=== PATIENT | female | born 1950 | race Caucasian/White ===

== ENCOUNTER 2017-06-02 15:17 | Emergency (ER) | payer BC, MEDICARE ==
[2017-06-02] MEDS ORDERED: Lidocaine 1% with EPINEPHrine 1:100,000 50 ML MDV INFILT ONE (15:49)
--- NOTE | 2017-06-02 16:12 | EDM.PDOC ---
ED HPI GENERAL MEDICAL PROBLEM - General Chief Complaint: Bite:Animal, Insect Stated Complaint: DOG BITE Time Seen by Provider: 06/02/17 15:27 Source of Information: Reports: Patient History Limitations: Reports: No Limitations - History of Present Illness INITIAL COMMENTS - FREE TEXT/NARRATIVE: 66 yo female presents to ER post dog bite by her own dog. dog is up to date on vaccinations. dog was under table with another dog and growling pt placed her hand under table to settle dog and was bit. Bite is on left hand with punctures on dorsum and huber. moderate bleeding. generally healthy. She is anticoagulated. INR has been stable. generally healthy. Left Hand Pain Score (Numeric/FACES): 3 - Related Data Allergies Allergy/AdvReac Type Severity Reaction Status Date / Time latex Allergy Itching Verified 06/02/17 15:38 Home Meds: Home Meds Atenolol [Tenormin] 25 mg PO DAILY 08/04/14 [History] Past Medical History Cardiovascular History: Reports: Hypertension Gastrointestinal History: Reports: Bowel Obstruction Other OB/BYN History: OVARIAN CYST Other Hematologic History: DVT - Past Surgical History GI Surgical History: Reports: Appendectomy Other GI Surgeries/Procedures: PARTIAL REMOVAL OF BOWEL R/T BOWEL OBSTRUCTION Social & Family History - Tobacco Use Smoking Status *Q: Unknown Ever Smoked Second Hand Smoke Exposure: No - Alcohol Use Days Per Week of Alcohol Use: 7 Number of Drinks Per Day: 3 Total Drinks Per Week: 21 - Recreational Drug Use Recreational Drug Use: No ED ROS GENERAL - Review of Systems Review Of Systems: See Below Constitutional: Denies: Fever, Fatigue Respiratory: Denies: Shortness of Breath Cardiovascular: Denies: Chest Pain ED EXAM, ANIMAL BITE - Physical Exam Exam: See Below Exam Limited By: No Limitations General Appearance: Alert, WD/WN, No Apparent Distress Respiratory/Chest: No Respiratory Distress Skin Exam: Other (pucture wounds; dormsum over 4th metacarpel 1.5 cm, huber mid palm 1 cm and superfical, CMS of fingers intact) Course - Vital Signs Last Recorded V/S: Last Vital Signs Temp 36.3 C 06/02/17 15:33 Pulse 87 06/02/17 15:33 Resp 15 06/02/17 15:33 BP 162/89 H 06/02/17 15:33 Pulse Ox 95 06/02/17 15:33 - Orders/Labs/Meds Meds: Medications Discontinued Medications Generic Name Dose Route Start Last Admin Trade Name Man PRN Reason Stop Dose Admin Bacitracin 1 dose 06/02/17 16:20 06/02/17 16:42 Bacitracin Oint 1 Gm TOP 06/02/17 16:21 1 dose ONETIME ONE Administration Lidocaine/Epinephrine 3 ml 06/02/17 15:49 06/02/17 16:14 Xylocaine 1% With Epinephrine 1:100,000 INFILT 06/02/17 15:50 3 ml ONETIME ONE Administration - Re-Assessments/Exams Free Text/Narrative Re-Assessment/Exam: 06/02/17 17:04 hand was soaked in shurcleanse and normal saline. 1 mL Lidocaine 1% with epi infiltrated. wound explored to base. flushed with normal saline. topical antibiotic applied and wounds dressing and wrapped with Cirilo to control bleeding. pt tolerated well Departure - Departure Time of Disposition: 16:30 Disposition: Home, Self-Care 01 Condition: Good Clinical Impression: Dog bite of left hand Qualifiers: Encounter type: initial encounter Qualified Code(s): S61.452A - Open bite of left hand, initial encounter - Discharge Information Instructions: Animal Bite, [id number] Referrals: Aurelia Toro NP [Primary Care Provider] - Forms: ED Department Discharge Additional Instructions: Augmentin 500 mg twice daily for 5 days change dressing in 24 hours observe for signs of infection : fire engine red, purulent drainage or increase in pain Ice for pain control tylenol 1000 mg every 6 hours as needed for pain
[2017-06-02] MEDS ORDERED: Bacitracin Oint 1 GM U/D Packet TOP ONE (16:20)
== END 2017-06-02 16:43 | disposition home or self-care (01) ==
LOC: JP.ED 15:17
DX: S61.452A Open bite of left hand, initial encounter (principal); I10 Essential (primary) hypertension; Z79.899 Other long term (current) drug therapy; Z91.040 Latex allergy status; W54.0XXA Bitten by dog, initial encounter
CPT/HCPCS: 99284; A4217

== ENCOUNTER 2018-12-05 06:21 | Day surgery (SDC) | payer BC, MEDICARE ==
[2018-12-05] MEDS: Sodium Chloride 0.9% 1,000 ML IV SCH (07:07)
[2018-12-05] MEDS ORDERED: Propofol 200 MG/20 ML SDV ONE ×2 (07:33→08:02)
[2018-12-05] MEDS ORDERED: Midazolam 1 MG/ML 2 ML SDV ONE (07:34)
[2018-12-05] MEDS ORDERED: fentaNYL 100 MCG/2 ML SDV ONE (07:34)
--- NOTE | 2018-12-09 12:03 | OR ---
DATE OF PROCEDURE: 12/05/2018 PROCEDURE: Colonoscopy. FINDINGS: 1. Ascending colon polyp, approximately 8 mm, completely removed using cold snare. 2. Poor colon prep. COMPLICATIONS: None. SURGEON: Mihai Ndiaye MD MANAGER TECHNICAL SALES: None. ANESTHESIA: MAC. PREOPERATIVE DIAGNOSIS: Screening colonoscopy. POSTOPERATIVE DIAGNOSIS: Screening colonoscopy. RISKS: Risks, benefits, alternatives, and limitations including but not limited to infection, bleeding, and perforation were explained. The patient wished to proceed. PROCEDURE IN DETAIL: The patient was placed in left lateral decubitus position. Digital rectal exam was performed without abnormality. The scope was introduced and advanced atraumatically to the ileocecal valve. The scope was brought back through the ascending, transverse, descending colon, and retroflexed. The aforementioned polyp was identified and completely removed. No other abnormalities were noted. The polyp had been removed using cold snare. No abnormal bleeding was noted after this. The prep can be described as poor; however, approximately 90% of the luminal surface could be seen. The patient tolerated the procedure well. Mihai Ndiaye MD /[id number]
== END 2018-12-05 09:05 | disposition home or self-care (01) ==
LOC: JP.SDS 06:21
PROVIDERS: ATTEND Surgery
DX: Z12.11 Encounter for screening for malignant neoplasm of colon (principal); D12.2 Benign neoplasm of ascending colon; I10 Essential (primary) hypertension; E78.5 Hyperlipidemia, unspecified; E66.01 Morbid (severe) obesity due to excess calories; Z68.42 Body mass index [BMI] 45.0-49.9, adult; Z91.040 Latex allergy status
CPT/HCPCS: 45385; 88305; J2250; J2704; J3010; J7030

== ENCOUNTER 2019-06-29 20:34 | Emergency (ER) | payer BC, MEDICARE ==
--- NOTE | 2019-06-29 21:37 | EDM.PDOC ---
ED HPI GENERAL MEDICAL PROBLEM - General Chief Complaint: CLAM PICKER Problem Stated Complaint: VAG BLEEDING Time Seen by Provider: 06/29/19 21:17 Source of Information: Reports: Patient, Family, RN Notes Reviewed History Limitations: Reports: No Limitations - History of Present Illness INITIAL COMMENTS - FREE TEXT/NARRATIVE: 69-year-old female presents emergency department today with vaginal bleeding, she is postmenopausal blue she went through menopause in the late 90s. She has had vaginal bleeding on and off for the last 2 to 3 weeks currently it is very heavy going through multiple pads an hour at this time. She did not feel lightheaded has not wanted to pass out. - Related Data Allergies Allergy/AdvReac Type Severity Reaction Status Date / Time latex Allergy Itching Verified 06/29/19 21:04 Home Meds: Home Meds Atenolol [Tenormin] 50 mg PO DAILY 08/04/14 [History] Acetaminophen [Tylenol] 650 mg PO Q6HR PRN 12/04/18 [History] Furosemide 20 mg PO DAILY 12/04/18 [History] Warfarin Sodium 2.5 mg PO DAILY 12/04/18 [History] atorvaSTATin Calcium [Atorvastatin Calcium] 10 mg PO DAILY 12/04/18 [History] Past Medical History HEENT History: Reports: Impaired Vision Cardiovascular History: Reports: Blood Clots/VTE/DVT, High Cholesterol, Hypertension Gastrointestinal History: Reports: Bowel Obstruction, Colon Polyp CLAM PICKER History: Reports: , Other (See Below) Other CLAM PICKER History: OVARIAN CYST Psychiatric History: Reports: Other (See Below) Other Psychiatric History: claustaphobia Hematologic History: Reports: Anticoagulation Therapy, Blood Transfusion(s) Other Hematologic History: DVT Dermatologic History: Reports: Cellulitis - Infectious Disease History Infectious Disease History: Reports: Chicken Pox - Past Surgical History HEENT Surgical History: Reports: None Cardiovascular Surgical History: Reports: None GI Surgical History: Reports: Appendectomy, Colonoscopy, Polypectomy, Other ( See Below) Other GI Surgeries/Procedures: PARTIAL REMOVAL OF BOWEL R/T BOWEL OBSTRUCTION Female Surgical History: Reports: Oophorectomy Musculoskeletal Surgical History: Reports: None Dermatological Surgical History: Reports: None Social & Family History - Family History Family Medical History: Noncontributory - Tobacco Use Smoking Status *Q: Never Smoker - Caffeine Use Caffeine Use: Reports: Coffee - Alcohol Use Days Per Week of Alcohol Use: 7 Number of Drinks Per Day: 3 Total Drinks Per Week: 21 - Recreational Drug Use Recreational Drug Use: No ED ROS GENERAL - Review of Systems Review Of Systems: See Below Constitutional: Reports: No Symptoms HEENT: Reports: No Symptoms Respiratory: Reports: No Symptoms Cardiovascular: Reports: No Symptoms GI/Abdominal: Reports: No Symptoms : Reports: Irregular Menses ED EXAM, RENAL/ - Physical Exam Exam: See Below Exam Limited By: No Limitations General Appearance: Alert, WD/WN, No Apparent Distress Respiratory/Chest: No Respiratory Distress GI/Abdominal: Soft, Non-Tender (Female) Exam: Normal External Exam, Normal Bimanual Exam, Vaginal Bleeding. No: Adnexal Mass, Adnexal Tenderness, Vaginal Tears Course - Vital Signs Last Recorded V/S: Last Vital Signs Temp 97.4 F 06/29/19 21:07 Pulse 80 06/29/19 21:07 Resp 16 06/29/19 21:07 BP 178/79 H 06/29/19 21:07 Pulse Ox 96 06/29/19 21:07 - Orders/Labs/Meds Labs: Laboratory Tests 06/29/19 06/29/19 06/29/19 Range/Units 21:39 21:39 21:39 WBC 7.1 (4.5-11.0) K/uL RBC 4.38 (3.30-5.50) M/uL Hgb 13.9 (12.0-15.0) g/dL Hct 42.7 (36.0-48.0) % MCV 98 (80-98) fL MCH 32 H (27-31) pg MCHC 33 (32-36) % Plt Count 242 (150-400) K/uL Neut % (Auto) 60 (36-66) % Lymph % (Auto) 28 (24-44) % [place] % (Auto) 10 H (2-6) % Eos % (Auto) 1 L (2-4) % Baso % (Auto) 1 (0-1) % PT 24.3 H (9.5-12.0) sec INR 2.36 H (0.80-1.20) Sodium 140 (140-148) mmol/L Potassium 3.4 L (3.6-5.2) mmol/L Chloride 100 (100-108) mmol/L Carbon Dioxide 29 (21-32) mmol/L Anion Gap 14.4 H (5.0-14.0) mmol/L BUN 15 (7-18) mg/dL Creatinine 1.2 H (0.6-1.0) mg/dL Est Cr Clr Drug Dosing 38.75 mL/min Estimated GFR (MDRD) 45 L (>60) Glucose 127 H (74-106) mg/dL Calcium 9.0 (8.5-10.1) mg/dL Total Bilirubin 0.3 (0.2-1.0) mg/dL AST 21 (15-37) U/L ALT 30 (12-78) U/L Alkaline Phosphatase 104 (46-116) U/L Total Protein 7.4 (6.4-8.2) g/dL Albumin 3.6 (3.4-5.0) g/dL Globulin 3.8 H (2.3-3.5) g/dL Albumin/Globulin Ratio 1.0 L (1.2-2.2) TSH, Ultra Sensitive (0.358-3.740) uIU/mL 06/29/19 Range/Units 21:39 WBC (4.5-11.0) K/uL RBC (3.30-5.50) M/uL Hgb (12.0-15.0) g/dL Hct (36.0-48.0) % MCV (80-98) fL MCH (27-31) pg MCHC (32-36) % Plt Count (150-400) K/uL Neut % (Auto) (36-66) % Lymph % (Auto) (24-44) % [place] % (Auto) (2-6) % Eos % (Auto) (2-4) % Baso % (Auto) (0-1) % PT (9.5-12.0) sec INR (0.80-1.20) Sodium (140-148) mmol/L Potassium (3.6-5.2) mmol/L Chloride (100-108) mmol/L Carbon Dioxide (21-32) mmol/L Anion Gap (5.0-14.0) mmol/L BUN (7-18) mg/dL Creatinine (0.6-1.0) mg/dL Est Cr Clr Drug Dosing mL/min Estimated GFR (MDRD) (>60) Glucose (74-106) mg/dL Calcium (8.5-10.1) mg/dL Total Bilirubin (0.2-1.0) mg/dL AST (15-37) U/L ALT (12-78) U/L Alkaline Phosphatase (46-116) U/L Total Protein (6.4-8.2) g/dL Albumin (3.4-5.0) g/dL Globulin (2.3-3.5) g/dL Albumin/Globulin Ratio (1.2-2.2) TSH, Ultra Sensitive 7.068 H (0.358-3.740) uIU/mL Departure - Departure Time of Disposition: 00:23 Disposition: Home, Self-Care 01 Condition: Fair Clinical Impression: Vaginal bleeding - Discharge Information Referrals: Francisco Alcantara MD [Primary Care Provider] - Forms: ED Department Discharge Additional Instructions: Please call to the [facility] in the morning for an appointment time with OB/ GAS METER REPAIRER, inform them that you would be willing to drive to [facility] to meet with an CLAM PICKER for sooner appointment. Call or return to the emergency department for worsening of symptoms - Assessment/Plan Plan: Assessment Acuity = acute Site and laterality = vaginal bleeding Etiology = concern for endometrial neoplasm Manifestations = none Location of injury = Home Lab values = CBC unremarkable INR therapeutic 2.36, creatinine elevated 1.2 consistent chronic renal failure stage G3 a TSH elevated 7.068 consistent with subclinical hypothyroidism, ultrasound does show a thickened endometrium concern for endometrial neoplasm Plan I did review lab work with her and provided her a copy of her ultrasound results consult was put into the [facility] for CLAM PICKER as soon as possible she is willing to drive to [facility] for sooner consult This note was dictated using [employer] voice recognition software please call with any questions on syntax or grammar.
--- NOTE | 2019-06-29 23:49 | CRLUS ---
INDICATION: Postmenopausal bleeding TECHNIQUE: Multiple transvaginal sonographic images of the pelvis. COMPARISON: None available FINDINGS: Uterus: 8.2 x 5.6 x 3.9 cm. Inhomogeneous echotexture. Multiple cervical nabothian cysts. Endometrium: A significantly thickened, heterogeneous endometrium, measuring up to 2.4 cm, demonstrating mixed attenuation with hypoechoic components, as well as small foci of internal Doppler flow. Right ovary: Not seen. Left ovary: Not seen. Cul-de-sac: No significant free fluid. IMPRESSION: A significantly thickened, heterogeneous endometrium containing small foci of Doppler flow, highly suggestive of endometrial neoplasm. Recommend further gynecological evaluation with endometrial biopsy. Nonvisualization of the ovaries. Dictated by Richard Chang MD @ 06/29/2019 11:48:20 PM Dictated by: Richard Chang MD @ 06/29/2019 23:48:34 (Electronically Signed)
== END 2019-06-30 00:35 | disposition home or self-care (01) ==
LOC: JP.ED 20:34
DX: N93.9 Abnormal uterine and vaginal bleeding, unspecified (principal); I82.409 Acute embolism and thrombosis of unspecified deep veins of unspecified lower extremity; I10 Essential (primary) hypertension; E78.00 Pure hypercholesterolemia, unspecified; Z79.01 Long term (current) use of anticoagulants; Z79.899 Other long term (current) drug therapy; Z91.040 Latex allergy status
CPT/HCPCS: 36415; 76830; 80053; 84443; 85025; 85610; 99284-25

== ENCOUNTER 2019-09-22 19:21 | Emergency (ER) | payer BC, MEDICARE ==
--- NOTE | 2019-09-22 21:56 | EDM.PDOC ---
ED HPI GENERAL MEDICAL PROBLEM - General Chief Complaint: General Stated Complaint: SOB,DIZZY Time Seen by Provider: 09/22/19 21:46 Source of Information: Reports: Patient, Family History Limitations: Reports: No Limitations - History of Present Illness INITIAL COMMENTS - FREE TEXT/NARRATIVE: pt has had very heavy vag bleeding. She is now feeling mildly lite headed and she is sob with activity. She recently did have 2 days of very heavy bleeding. Onset: Other (last 2 days. ) Duration: Hour(s): Location: Reports: Generalized Associated Symptoms: Reports: Shortness of Breath, Other ( this is with activity. ) denies Pain Score (Numeric/FACES): 0 - Related Data Allergies Allergy/AdvReac Type Severity Reaction Status Date / Time latex Allergy Itching Verified 09/22/19 19:39 Home Meds: Home Meds atenoloL [Tenormin] 50 mg PO DAILY 08/04/14 [History] Acetaminophen [Tylenol] 650 mg PO Q6HR PRN 12/04/18 [History] Furosemide 20 mg PO DAILY 12/04/18 [History] Warfarin Sodium 2.5 mg PO DAILY 12/04/18 [History] atorvaSTATin Calcium [Atorvastatin Calcium] 10 mg PO DAILY 12/04/18 [History] Past Medical History HEENT History: Reports: Impaired Vision Cardiovascular History: Reports: Blood Clots/VTE/DVT, High Cholesterol, Hypertension Gastrointestinal History: Reports: Bowel Obstruction, Colon Polyp Genitourinary History: Reports: None LABORATORY OPERATIONS COORDINATOR History: Reports: , Other (See Below) Other LABORATORY OPERATIONS COORDINATOR History: OVARIAN CYST Psychiatric History: Reports: Other (See Below) Other Psychiatric History: claustaphobia Endocrine/Metabolic History: Reports: Obesity/BMI 30+ Hematologic History: Reports: Anticoagulation Therapy, Blood Transfusion(s) Other Hematologic History: DVT Dermatologic History: Reports: Cellulitis - Infectious Disease History Infectious Disease History: Reports: Chicken Pox - Past Surgical History GI Surgical History: Reports: Appendectomy, Colonoscopy, Polypectomy, Other ( See Below) Other GI Surgeries/Procedures: PARTIAL REMOVAL OF BOWEL R/T BOWEL OBSTRUCTION Female Surgical History: Reports: Oophorectomy Social & Family History - Family History Family Medical History: Noncontributory - Tobacco Use Smoking Status *Q: Never Smoker Second Hand Smoke Exposure: No - Caffeine Use Caffeine Use: Reports: Coffee, Tea - Alcohol Use Days Per Week of Alcohol Use: 7 Number of Drinks Per Day: 3 Total Drinks Per Week: 21 - Recreational Drug Use Recreational Drug Use: No ED ROS GENERAL - Review of Systems Review Of Systems: See Below Constitutional: Reports: Weakness, Other ( slight dizziness) HEENT: Reports: No Symptoms Respiratory: Reports: Shortness of Breath Cardiovascular: Reports: Other (heart has been pounding a little harder. ) Endocrine: Reports: No Symptoms GI/Abdominal: Reports: No Symptoms : Reports: No Symptoms Musculoskeletal: Reports: No Symptoms Skin: Reports: No Symptoms Neurological: Reports: No Symptoms Psychiatric: Reports: No Symptoms ED EXAM, GENERAL - Physical Exam Exam: See Below Free Text/Narrative:: pt arrived with a history of fatique, sob and feels like her heart is poundiong. She has no chest pain. Exam Limited By: No Limitations General Appearance: Alert, Anxious, Mild Distress, Other ( Her o2 sats were good. ) Ears: Normal TMs Nose: Normal Inspection Throat/Mouth: Normal Inspection Head: Atraumatic Neck: Normal Inspection Respiratory/Chest: No Respiratory Distress Cardiovascular: Regular Rate, Rhythm GI/Abdominal: Soft, Non-Tender (Female) Exam: Deferred Rectal (Female) Exam: Deferred Back Exam: Normal Inspection Extremities: Normal Inspection Neurological: Alert, Oriented, Normal Cognition Psychiatric: Normal Affect Course - Vital Signs Last Recorded V/S: Last Vital Signs Temp 35.9 C L 09/22/19 19:51 Pulse 72 09/22/19 21:08 Resp 16 09/22/19 20:09 BP 140/73 09/22/19 21:08 Pulse Ox 100 09/22/19 21:08 - Orders/Labs/Meds Orders: Active Orders 24 hr Category Date Time Status Chest 2V [CR] Stat Exams 09/22/19 20:03 Taken Labs: Laboratory Tests 09/22/19 09/22/19 09/22/19 Range/Units 20:09 20:09 20:09 WBC 7.4 (4.5-11.0) K/uL RBC 2.99 L (3.30-5.50) M/uL Hgb 8.4 L D (12.0-15.0) g/dL Hct 27.1 L (36.0-48.0) % MCV 91 (80-98) fL MCH 28 (27-31) pg MCHC 31 L (32-36) % Plt Count 269 (150-400) K/uL Neut % (Auto) 68 H (36-66) % Lymph % (Auto) 22 L (24-44) % [place] % (Auto) 10 H (2-6) % Eos % (Auto) 0 L (2-4) % Baso % (Auto) 0 (0-1) % PT (9.5-12.0) sec INR (0.80-1.20) D-Dimer, Quantitative 151 (0.0-400.0) ng/mL Sodium 136 L (140-148) mmol/L Potassium 3.5 L (3.6-5.2) mmol/L Chloride 99 L (100-108) mmol/L Carbon Dioxide 28 (21-32) mmol/L Anion Gap 12.5 (5.0-14.0) mmol/L BUN 19 H (7-18) mg/dL Creatinine 1.2 H (0.6-1.0) mg/dL Est Cr Clr Drug Dosing 38.75 mL/min Estimated GFR (MDRD) 45 L (>60) Glucose 135 H (74-106) mg/dL Calcium 8.1 L (8.5-10.1) mg/dL Total Bilirubin 0.4 (0.2-1.0) mg/dL AST 14 L (15-37) U/L ALT 19 (12-78) U/L Alkaline Phosphatase 75 (46-116) U/L Total Protein 6.1 L (6.4-8.2) g/dL Albumin 3.1 L (3.4-5.0) g/dL Globulin 3.0 (2.3-3.5) g/dL Albumin/Globulin Ratio 1.0 L (1.2-2.2) Urine Color (YELLOW) Urine Appearance (CLEAR) Urine pH (5.0-8.0) Ur Specific [place] (1.008-1.030) Urine Protein (NEGATIVE) mg/dL Urine Glucose (UA) (NEGATIVE) mg/dL Urine Ketones (NEGATIVE) mg/dL Urine Occult Blood (NEGATIVE) Urine Nitrite (NEGATIVE) Urine Bilirubin (NEGATIVE) Urine Urobilinogen (0.2-1.0) EU/dL Ur Leukocyte Esterase (NEGATIVE) Urine RBC (0-5) Urine WBC (0-5) Ur Epithelial Cells Amorphous Sediment Urine Bacteria Urine Mucus 09/22/19 09/22/19 Range/Units 20:09 21:04 WBC (4.5-11.0) K/uL RBC (3.30-5.50) M/uL Hgb (12.0-15.0) g/dL Hct (36.0-48.0) % MCV (80-98) fL MCH (27-31) pg MCHC (32-36) % Plt Count (150-400) K/uL Neut % (Auto) (36-66) % Lymph % (Auto) (24-44) % [place] % (Auto) (2-6) % Eos % (Auto) (2-4) % Baso % (Auto) (0-1) % PT 16.8 H (9.5-12.0) sec INR 1.60 H (0.80-1.20) D-Dimer, Quantitative (0.0-400.0) ng/mL Sodium (140-148) mmol/L Potassium (3.6-5.2) mmol/L Chloride (100-108) mmol/L Carbon Dioxide (21-32) mmol/L Anion Gap (5.0-14.0) mmol/L BUN (7-18) mg/dL Creatinine (0.6-1.0) mg/dL Est Cr Clr Drug Dosing mL/min Estimated GFR (MDRD) (>60) Glucose (74-106) mg/dL Calcium (8.5-10.1) mg/dL Total Bilirubin (0.2-1.0) mg/dL AST (15-37) U/L ALT (12-78) U/L Alkaline Phosphatase (46-116) U/L Total Protein (6.4-8.2) g/dL Albumin (3.4-5.0) g/dL Globulin (2.3-3.5) g/dL Albumin/Globulin Ratio (1.2-2.2) Urine Color Red A (YELLOW) Urine Appearance Cloudy A (CLEAR) Urine pH 6.0 (5.0-8.0) Ur Specific [place] 1.020 (1.008-1.030) Urine Protein 30 H (NEGATIVE) mg/dL Urine Glucose (UA) Negative (NEGATIVE) mg/dL Urine Ketones Negative (NEGATIVE) mg/dL Urine Occult Blood Large H (NEGATIVE) Urine Nitrite Negative (NEGATIVE) Urine Bilirubin Negative (NEGATIVE) Urine Urobilinogen 0.2 (0.2-1.0) EU/dL Ur Leukocyte Esterase Negative (NEGATIVE) Urine RBC Packed H (0-5) Urine WBC 0-5 (0-5) Ur Epithelial Cells Rare Amorphous Sediment Not seen Urine Bacteria Rare Urine Mucus Not seen - Re-Assessments/Exams Free Text/Narrative Re-Assessment/Exam: 09/22/19 22:02 hg was found to be 8.4. This needs to be rechecked and if it drops further she may need to be transfused prior to the ablation. She has a GFR of 45 so shhe does need to stay well hydrated. 09/22/19 22:03 Departure - Departure Time of Disposition: 21:56 Disposition: Home, Self-Care 01 Condition: Fair Clinical Impression: Anemia, Renal insufficiency, Diabetes mellitus - Discharge Information Referrals: Francisco Alcantara MD [Primary Care Provider] - Forms: ED Department Discharge Care Plan Goals: push fluids, vitamin high in iron, have hg checked again on saturday since it is 8.4 today. keep preop appt for Saturday with Embarr [facility]s. Sepsis Event Note - Evaluation Sepsis Screening Result: No Definite Risk - Focused Exam Vital Signs: Vital Signs Temp Pulse Resp BP Pulse Ox 09/22/19 21:08 72 140/73 100 09/22/19 20:38 71 135/64 100 09/22/19 20:09 73 16 145/46 H 92 L 09/22/19 19:51 35.9 C L 83 16 181/53 H 98 09/22/19 19:41 35.9 C L 83 16 181/53 H 98 Date Exam was Performed: 09/22/19 Time Exam was Performed: 21:59 - My Orders Last 24 Hours: My Active Orders 09/22/19 20:03 Chest 2V [CR] Stat - Assessment/Plan Last 24 Hours: My Active Orders 09/22/19 20:03 Chest 2V [CR] Stat
--- NOTE | 2019-09-23 10:57 | CR ---
CHEST: 2 view CLINICAL HISTORY:SOB COMPARISON:2013 FINDINGS: The heart size, pulmonary vascular and hilar structures are normal. No infiltrate effusion or pneumothorax is seen. There are atherosclerotic changes in the aorta. IMPRESSION: No acute cardiopulmonary process.
== END 2019-09-22 22:28 | disposition home or self-care (01) ==
LOC: JP.ED 19:21
DX: D64.9 Anemia, unspecified (principal); N28.9 Disorder of kidney and ureter, unspecified; E11.9 Type 2 diabetes mellitus without complications; E78.00 Pure hypercholesterolemia, unspecified; I10 Essential (primary) hypertension; E66.9 Obesity, unspecified; Z68.43 Body mass index [BMI] 50.0-59.9, adult; Z91.040 Latex allergy status; Z79.899 Other long term (current) drug therapy; Z79.01 Long term (current) use of anticoagulants; Z86.718 Personal history of other venous thrombosis and embolism
CPT/HCPCS: 36415; 71046; 71046-26; 80053; 81001; 85025; 85379; 85610; 99285-25

== ENCOUNTER 2021-01-15 18:02 | Emergency (ER) | payer BC, MEDICARE ==
--- NOTE | 2021-01-15 18:41 | EDM.PDOC ---
ED HPI GENERAL MEDICAL PROBLEM - General Chief Complaint: Respiratory Problem Stated Complaint: TROUBLE BREATHING, CONGESTION Time Seen by Provider: 01/15/21 18:12 Source of Information: Reports: Patient History Limitations: Reports: No Limitations - History of Present Illness INITIAL COMMENTS - FREE TEXT/NARRATIVE: 70 yo female presents to ER with cough. 4 day hx of mild throat congestion that has become a productive. She denies nasal congestion, she does feel mild sore throat. denies fever. denies peripheral edema. appetite is normal. - Related Data Allergies Allergy/AdvReac Type Severity Reaction Status Date / Time latex Allergy Itching Verified 01/15/21 18:15 Home Meds: Home Meds atenoloL [Tenormin] 50 mg PO DAILY 08/04/14 [History] Acetaminophen [Tylenol] 650 mg PO Q6HR PRN 12/04/18 [History] Furosemide 20 mg PO DAILY 12/04/18 [History] atorvaSTATin Calcium [Atorvastatin Calcium] 10 mg PO DAILY 12/04/18 [History] Ferrous Sulfate 325 mg PO DAILY 09/25/19 [History] Past Medical History HEENT History: Reports: Impaired Vision Cardiovascular History: Reports: Blood Clots/VTE/DVT, High Cholesterol, Hypertension Gastrointestinal History: Reports: Bowel Obstruction, Colon Polyp Genitourinary History: Reports: None 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: , Other (See Below) Other PULPWOOD CUTTER History: OVARIAN CYST Psychiatric History: Reports: Other (See Below) Other Psychiatric History: claustaphobia Endocrine/Metabolic History: Reports: Obesity/BMI 30+ Hematologic History: Reports: Anticoagulation Therapy, Blood Transfusion(s) Other Hematologic History: DVT Dermatologic History: Reports: Cellulitis - Infectious Disease History Infectious Disease History: Reports: Chicken Pox - Past Surgical History HEENT Surgical History: Reports: None Cardiovascular Surgical History: Reports: None GI Surgical History: Reports: Appendectomy, Colonoscopy, Polypectomy, Other (See Below) Other GI Surgeries/Procedures: PARTIAL REMOVAL OF BOWEL R/T BOWEL OBSTRUCTION Female Surgical History: Reports: Oophorectomy Musculoskeletal Surgical History: Reports: None Dermatological Surgical History: Reports: None Social & Family History - Family History Family Medical History: No Pertinent Family History - Tobacco Use Tobacco Use Status *Q: Never Tobacco User - Caffeine Use Caffeine Use: Reports: Coffee - Recreational Drug Use Recreational Drug Use: No ED ROS GENERAL - Review of Systems Review Of Systems: See Below Constitutional: Denies: Fever, Chills HEENT: Reports: Rhinitis, Sinus Problem, Throat Pain Respiratory: Reports: Shortness of Breath, Wheezing, Cough Cardiovascular: Denies: Chest Pain GI/Abdominal: Denies: Abdominal Pain ED EXAM, GENERAL - Physical Exam Exam: See Below Exam Limited By: No Limitations General Appearance: Alert, WD/WN, No Apparent Distress Ears: Normal External Exam, Normal Canal, Hearing Grossly Normal, Normal TMs Nose: Normal Inspection, Normal Mucosa, No Blood Throat/Mouth: Normal Lips, Normal Teeth, Normal Gums, Inflammation, Other (hoarse voice) Head: Atraumatic, Normocephalic Neck: Normal Inspection, Supple, Non-Tender, Full Range of Motion. No: Lymphadenopathy (R), Lymphadenopathy (L) Respiratory/Chest: No Respiratory Distress, Decreased Breath Sounds, Wheezing (scattered) Cardiovascular: Regular Rate, Rhythm, No Murmur Course - Vital Signs Last Recorded V/S: Last Vital Signs Temp 35.7 C L 01/15/21 18:14 Pulse 84 01/15/21 18:14 Resp 18 01/15/21 18:14 BP 172/90 H 01/15/21 18:14 Pulse Ox 97 01/15/21 18:14 - Orders/Labs/Meds Orders: Active Orders 24 hr Category Date Time Status Chest 2V [CR] Stat Exams 01/15/21 18:32 Taken Departure - Departure Time of Disposition: 19:14 Disposition: Home, Self-Care 01 Condition: Good Clinical Impression: Bronchitis, acute Qualifiers: Bronchitis organism: unspecified organism Qualified Code(s): J20.9 - Acute bronchitis, unspecified Allergic rhinitis Qualifiers: Allergic rhinitis trigger: unspecified Allergic rhinitis seasonality: seasonal Qualified Code(s): J30.2 - Other seasonal allergic rhinitis - Discharge Information *PRESCRIPTION DRUG MONITORING PROGRAM REVIEWED*: Not Applicable *COPY OF PRESCRIPTION DRUG MONITORING REPORT IN PATIENT DEVIN: Not Applicable Instructions: Allergic Rhinitis, Adult, [id number], Acute Bronchitis, Adult, [id number] Referrals: Clarice Le PA-C [Primary Care Provider] - Forms: ED Department Discharge Additional Instructions: Benadryl tonight and Claritin or other allergy medication through the day tomorrow start prednisone 20 mg tomorrow tapering dose, 3 tab for 3 days, 2 tabs for 3 days, 1 tab for 3 days and 0.5 tab for 4 days increase fluid intake with goal of 1.5 liters per day follow-up with primary care if no improvement by midweek Sepsis Event Note (ED) - Evaluation Sepsis Screening Result: No Definite Risk - Focused Exam Vital Signs: Vital Signs Temp Pulse Resp BP Pulse Ox 01/15/21 18:14 35.7 C L 84 18 172/90 H 97 01/15/21 18:12 35.7 C L 84 18 172/90 H 97 - My Orders Last 24 Hours: My Active Orders 01/15/21 18:32 Chest 2V [CR] Stat - Assessment/Plan Last 24 Hours: My Active Orders 01/15/21 18:32 Chest 2V [CR] Stat
--- NOTE | 2021-01-16 12:27 | CR ---
CHEST: 2 view CLINICAL HISTORY:Cough COMPARISON:2020 FINDINGS: The heart size, pulmonary vascularity and hilar structures are normal. No infiltrate effusion or pneumothorax is seen. IMPRESSION: No acute cardiopulmonary process.
== END 2021-01-15 19:32 | disposition home or self-care (01) ==
LOC: JP.ED 18:02
DX: J20.9 Acute bronchitis, unspecified (principal); J30.2 Other seasonal allergic rhinitis; E78.00 Pure hypercholesterolemia, unspecified; I10 Essential (primary) hypertension; E66.9 Obesity, unspecified; Z68.30 Body mass index [BMI] 30.0-30.9, adult; Z91.040 Latex allergy status; Z79.899 Other long term (current) drug therapy
CPT/HCPCS: 71046; 71046-26; 99283; 99283-25

== ENCOUNTER 2021-04-12 22:34 | Emergency (ER) | payer BC, MEDICARE ==
[2021-04-12] MEDS ORDERED: methylPREDNISolone Sodium Succinate 125 MG/2 ML SDV IVPUSH ONE (22:42)
[2021-04-12] MEDS ORDERED: diphenhydrAMINE 50 MG/ML SDV IVPUSH ONE (22:43)
--- NOTE | 2021-04-12 22:48 | EDM.PDOC ---
ED HPI GENERAL MEDICAL PROBLEM - General Chief Complaint: Allergic Reaction Stated Complaint: SOB AND ITCHY Time Seen by Provider: 04/12/21 22:40 Source of Information: Reports: Patient, Family History Limitations: Reports: No Limitations - History of Present Illness INITIAL COMMENTS - FREE TEXT/NARRATIVE: 70-year-old female who was feeling fine but after she went to bed she felt like she may have been bitten by something and now within an hour has a diffuse body wide erythematous hive-like rash that is pruritic and very uncomfortable. She feels like her throat is tight but not short of breath, no audible wheezing. She has not had a reaction like this in the past. She is on no antibiotics or new medications. No fevers or chills or recent illness. Onset: Gradual Duration: Hour(s): (Symptoms have developed over the last hour) Location: Reports: Generalized Associated Symptoms: Reports: Malaise, Shortness of Breath (Breathing feels "tight"), Other (Very anxious). Denies: Chest Pain, Cough denies pain Pain Score (Numeric/FACES): 0 - Related Data Allergies Allergy/AdvReac Type Severity Reaction Status Date / Time latex Allergy Itching Verified 04/12/21 22:51 Home Meds: Home Meds atenoloL [Tenormin] 50 mg PO DAILY 08/04/14 [History] Acetaminophen [Tylenol] 650 mg PO Q6HR PRN 12/04/18 [History] Furosemide 20 mg PO DAILY 12/04/18 [History] atorvaSTATin Calcium [Atorvastatin Calcium] 10 mg PO DAILY 12/04/18 [History] Past Medical History HEENT History: Reports: Impaired Vision Cardiovascular History: Reports: Blood Clots/VTE/DVT, High Cholesterol, Hypertension Gastrointestinal History: Reports: Bowel Obstruction, Colon Polyp Genitourinary History: Reports: None 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: , 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 (See Below) 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 FINANCIAL PROJECT MANAGER History: OVARIAN CYST Psychiatric History: Reports: Other (See Below) Other Psychiatric History: claustaphobia Endocrine/Metabolic History: Reports: Obesity/BMI 30+ Hematologic History: Reports: Anticoagulation Therapy, Blood Transfusion(s) Other Hematologic History: DVT Dermatologic History: Reports: Cellulitis - Infectious Disease History Infectious Disease History: Reports: Chicken Pox - Past Surgical History HEENT Surgical History: Reports: None Cardiovascular Surgical History: Reports: None GI Surgical History: Reports: Appendectomy, Colonoscopy, Polypectomy, Other (See Below) Other GI Surgeries/Procedures: PARTIAL REMOVAL OF BOWEL R/T BOWEL OBSTRUCTION Female Surgical History: Reports: Oophorectomy Musculoskeletal Surgical History: Reports: None Dermatological Surgical History: Reports: None Social & Family History - Family History Family Medical History: No Pertinent Family History - Caffeine Use Caffeine Use: Reports: Coffee ED ROS ALLERGIC REACTION - Review of Systems Review Of Systems: See Below Constitutional: Reports: Malaise. Denies: Fever, Chills HEENT: Denies: Throat Pain, Vision Change Respiratory: Reports: Shortness of Breath. Denies: Cough Cardiovascular: Denies: Chest Pain, Palpitations GI/Abdominal: Denies: Nausea, Vomiting Skin: Reports: Erythema, Urticaria (Generalized) Neurological: Reports: No Symptoms Psychiatric: Reports: Anxiety ED EXAM GENERAL NO PERIP PULSE - Physical Exam Exam: See Below Exam Limited By: No Limitations General Appearance: Alert, Anxious, Other (Patient is extremely anxious but not laboring to breathe) Eye Exam: Bilateral Eye: Normal Inspection Throat/Mouth: Normal Inspection, Other (No mucosal swelling or erythema) Head: Atraumatic Respiratory/Chest: No Respiratory Distress, Lungs Clear Cardiovascular: Regular Rate, Rhythm Neurological: Alert, Oriented Psychiatric: Anxious Skin Exam: Warm, Dry, Erythema, Other (Widespread urticarial-like lesions are covering her arms, trunk and face, basically generalized) Course - Vital Signs Last Recorded V/S: Last Vital Signs Temp 98.2 F 04/12/21 23:02 Pulse 73 04/12/21 23:38 Resp 15 04/12/21 23:38 BP 149/70 H 04/12/21 23:38 Pulse Ox 97 04/12/21 23:38 - Orders/Labs/Meds Meds: Medications Discontinued Medications Generic Name Dose Route Start Last Admin Trade Name Freq PRN Reason Stop Dose Admin Diphenhydramine HCl 50 mg 04/12/21 22:43 04/12/21 22:52 Diphenhydramine 50 Mg/Ml Sdv IVPUSH 04/12/21 22:44 50 mg ONETIME ONE Administration Methylprednisolone Sodium Succinate 125 mg 04/12/21 22:42 04/12/21 22:52 Methylprednisolone Sodium Succinate 125 Mg/2 Ml Sdv IVPUSH 04/12/21 22:43 125 mg ONETIME ONE Administration - Re-Assessments/Exams Free Text/Narrative Re-Assessment/Exam: 04/12/21 22:47 This patient does appear to be having some type of systemic allergic reaction to something. An IV was started and she was given 50 mg of IV Benadryl and 125 mg of IV Solu-Medrol. She will be monitored over the next hour. 04/12/21 23:42 Within 45 minutes the patient's rash was almost completely gone except for her arms. She had calmed down and had no shortness of breath. She will be discharged with additional Benadryl to take every 4-6 hours as needed. Departure - Departure Time of Disposition: 23:44 Disposition: Home, Self-Care 01 Clinical Impression: Urticaria - Discharge Information Instructions: Hives, [id number] Referrals: Francisco Alcantara MD [Primary Care Provider] - Forms: ED Department Discharge Care Plan Goals: Continue Benadryl 25 to 50 mg every 4-6 hours as needed to keep hives under control. Return anytime if worsening such as difficulty breathing or vomiting. Consider rechecking in 2 days if still having symptoms. Sepsis Event Note (ED) - Focused Exam Vital Signs: Vital Signs Temp Pulse Resp BP Pulse Ox 04/12/21 23:38 73 15 149/70 H 97 04/12/21 23:02 98.2 F 92 19 141/88 H 95 04/12/21 22:39 98.2 F 92 19 141/88 H 95
== END 2021-04-12 23:50 | disposition home or self-care (01) ==
LOC: JP.ED 22:34
DX: L50.9 Urticaria, unspecified (principal); E78.00 Pure hypercholesterolemia, unspecified; E66.9 Obesity, unspecified; I10 Essential (primary) hypertension; Z86.718 Personal history of other venous thrombosis and embolism; Z68.42 Body mass index [BMI] 45.0-49.9, adult; Z91.040 Latex allergy status; Z79.899 Other long term (current) drug therapy
CPT/HCPCS: 96374; 96375; 99283; J1200; J2930

== ENCOUNTER 2023-06-02 09:34 | Emergency (ER) | payer BC, MEDICARE ==
[2023-06-02 10:28] LABS: BASOPHILS ABSOLUTE AUTO 0.05 K/uL (0.00-0.10); BASOPHILS PERCENT AUTO 0.6 % (0.1-1.3); EOSINOPHILS ABSOLUTE AUTO 0.04 K/uL (0.00-0.40); EOSINOPHILS PERCENT AUTO 0.5 % (0.0-5.4); HEMATOCRIT 44.8 % (34.3-46.0); HEMOGLOBIN 15.2 g/dL (11.2-15.5); IMMATURE GRAN ABSOLUTE AUTO 0.06 K/uL (0.00-0.23); IMMATURE GRAN PERCENT AUTO 0.8 % (0.0-0.7); LYMPHOCYTES PERCENT AUTO 15.5 % (11.4-47.7); MEAN CORPUSCULAR HEMOGLOBIN 33.7 pg (31.6-35.5); MEAN CORPUSCULAR HGB CONC 33.9 g/dL (31.6-35.5); MEAN CORPUSCULAR VOLUME 99.3 fL (81.4-99.0); MONOCYTES ABSOLUTE AUTO 0.54 K/uL (0.20-0.90); NEUTROPHILS ABSOLUTE AUTO 5.84 K/uL (1.0-7.6); NEUTROPHILS PERCENT AUTO 75.6 % (40.0-78.1); PLATELET COUNT,PLT 179 K/uL (130-375); RED BLOOD CELL COUNT 4.51 M/uL (3.77-5.24); WHITE BLOOD CELL COUNT,WBC 7.7 K/uL (3.2-11.0)
[2023-06-02 10:51] LABS: A/G RATIO 0.9 (1.2-2.2); ALANINE AMINOTRANSFERASE,ALT 22 U/L (12-78); ALBUMIN 3.1 g/dL (3.4-5.0); ALKALINE PHOSPHATASE 115 U/L (46-116); ANION GAP 10.7 mmol/L (5.0-14.0); ASPARTATE AMNIOTRANSFERASE,AST 31 U/L (15-37); BILIRUBIN TOTAL 0.7 mg/dL (0.2-1.0); BLOOD UREA NITROGEN,BUN 13 mg/dL (7-18); CALCIUM 8.5 mg/dL (8.5-10.1); CARBON DIOXIDE,CO2 28 mmol/L (21-32); CHLORIDE,CL 104 mmol/L (100-108); CREATININE 1.3 mg/dL (0.6-1.0); EST CRCL DRUG DOSING (CG) 35.72 mL/min; ESTIMATED GFR 44 mL/min (>60); GLUCOSE RANDOM 166 mg/dL (74-106); PROTEIN TOTAL,TP 6.4 g/dL (6.4-8.2); SODIUM,NA 143 mmol/L (140-148)
[2023-06-02 10:53] LABS: TROPONIN I HIGH SENSITIVITY 451.8 pg/mL (<=60.3)
[2023-06-02] MEDS ORDERED: Aspirin 81 MG Tab.Chew PO ONE (11:14)
[2023-06-02 11:22] LABS: CORONAVIRUS COVID-19 NAA NEGATIVE (NEGATIVE); INFLUENZA A NAA NEGATIVE (NEGATIVE); INFLUENZA B NAA NEGATIVE (NEGATIVE); RESPIRATORY SYNCYTIAL VIR NAA NEGATIVE (NEGATIVE)
[2023-06-02] MEDS ORDERED: Heparin Sodium 5,000 Units/ML Vial IVPUSH ONE (11:37)
[2023-06-02] MEDS ORDERED: Sodium Chloride 0.9% 1,000 ML IV SCH (11:45)
[2023-06-02] MEDS ORDERED: LORazepam 2 MG/ML SDV IVPUSH ONE (11:48)
[2023-06-02] MEDS ORDERED: Sodium Chloride 0.9% 75 ML IV SCH (12:00)
[2023-06-02] MEDS ORDERED: Iopamidol 755 Mg/ML 100 ML Bottle IV SCH (12:00)
[2023-06-02] MEDS: Sodium Chloride 0.9% 10 ML Syringe FLUSH ONE ×2 (12:23→12:29)
[2023-06-02] MEDS ORDERED: Heparin Sodium/D5W 25,000 UNITS/500 ML BAG IV SCH (12:45)
== END 2023-06-02 13:48 ==
LOC: JP.ED 09:34
DX: I26.99 Other pulmonary embolism without acute cor pulmonale (principal); I11.0 Hypertensive heart disease with heart failure; I50.9 Heart failure, unspecified; E78.00 Pure hypercholesterolemia, unspecified; E66.9 Obesity, unspecified; Z20.822 Contact with and (suspected) exposure to COVID-19; Z79.899 Other long term (current) drug therapy; Z91.040 Latex allergy status; Z68.42 Body mass index [BMI] 45.0-49.9, adult
CPT/HCPCS: 0241U; 36415; 71046; 71275; 80053; 84484; 85025; 85379; 93005; 96361; 96365; 96375; 96376; 99285; A9270; J1644; J2060; J3490; J7030; Q9967

== ENCOUNTER 2025-07-13 13:09 | Emergency (ER) | payer MEDICARE ==
[2025-07-13] MEDS ORDERED: Sodium Chloride 0.9% 10 ML Syringe FLUSH PRN (14:12)
[2025-07-13 14:30] LABS: BASOPHILS ABSOLUTE AUTO 0.05 K/uL (0.00-0.10); BASOPHILS PERCENT AUTO 0.5 % (0.1-1.3); EOSINOPHILS PERCENT AUTO 0.0 % (0.0-5.4); IMMATURE GRAN ABSOLUTE AUTO 0.09 K/uL (0.00-0.23); IMMATURE GRAN PERCENT AUTO 0.9 % (0.0-0.7); LYMPHOCYTES ABSOLUTE AUTO 0.70 K/uL (0.8-3.3); LYMPHOCYTES PERCENT AUTO 6.8 % (11.4-47.7); MONOCYTES ABSOLUTE AUTO 0.65 K/uL (0.20-0.90); MONOCYTES PERCENT AUTO 6.3 % (3.3-12.6); NEUTROPHILS ABSOLUTE AUTO 8.78 K/uL (1.0-7.6); NEUTROPHILS PERCENT AUTO 85.5 % (40.0-78.1); PLATELET COUNT,PLT 200 K/uL (130-375); RED BLOOD CELL COUNT 4.24 M/uL (3.77-5.24); WHITE BLOOD CELL COUNT,WBC 10.3 K/uL (3.2-11.0)
[2025-07-13 14:32] LABS: EOSINOPHILS ABSOLUTE AUTO 0.00 K/uL (0.00-0.40)
[2025-07-13 14:34] LABS: APPEARANCE,URINE CLOUDY (CLEAR); GLUCOSE,URINE NEGATIVE (NEGATIVE); OCCULT BLOOD,URINE NEGATIVE (NEGATIVE)
[2025-07-13 14:39] LABS: SQUAMOUS EPITHELIAL CELLS,UR MANY /HPF; UROTHELIAL CELLS,URINE NOT SEEN /HPF
[2025-07-13 15:02] LABS: A/G RATIO 0.9 (1.2-2.2); ALANINE AMINOTRANSFERASE,ALT 17 U/L (12-78); ASPARTATE AMNIOTRANSFERASE,AST 16 U/L (15-37); BILIRUBIN TOTAL 2.3 mg/dL (0.2-1.0); BLOOD UREA NITROGEN,BUN 22 mg/dL (7-18); CARBON DIOXIDE,CO2 29 mmol/L (21-32); CHLORIDE,CL 99 mmol/L (100-108); CREATININE 1.2 mg/dL (0.6-1.0); EST CRCL DRUG DOSING (CG) 37.01 mL/min; ESTIMATED GFR 48 mL/min (>60); GLUCOSE RANDOM 125 mg/dL (74-106); POTASSIUM,K 4.7 mmol/L (3.6-5.2); PROTEIN TOTAL,TP 6.9 g/dL (6.4-8.2); SODIUM,NA 139 mmol/L (140-148)
[2025-07-13] MEDS: Diltiazem 25 MG/5 ML SDV IVPUSH ONE ×2 (15:16→16:18)
[2025-07-13] MEDS: Diltiazem 100 MG in Sodium Chloride 0.9% 100 ML IV SCH (20:14)
== END 2025-07-13 21:52 ==
LOC: JP.ED 13:09
DX: I48.91 Unspecified atrial fibrillation (principal); I11.0 Hypertensive heart disease with heart failure; I50.9 Heart failure, unspecified; E78.00 Pure hypercholesterolemia, unspecified; E66.9 Obesity, unspecified; Z68.27 Body mass index [BMI] 27.0-27.9, adult; Z90.49 Acquired absence of other specified parts of digestive tract; Z91.040 Latex allergy status; Z79.01 Long term (current) use of anticoagulants; Z79.899 Other long term (current) drug therapy
CPT/HCPCS: 36415; 71046; 80053; 81001; 84484; 85025; 93005; 93010; 96361; 96365; 96366; 96376; 99285; J1163; J3490; J7030; J7040